=== PATIENT | female | born 2000 | race American Indian/Alaskan Native ===

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

== ENCOUNTER 2021-07-03 18:26 | Emergency (ER) | payer MEDICAID ==
[~2021-07-03] VITALS: Ht 157.5 cm; Wt 81.8 kg
[2021-07-03 19:26] VITALS: BP 123/100
== END 2021-07-04 02:50 | disposition left against medical advice (07) ==
LOC: ER 18:27
DX: T78.40XA Allergy, unspecified, initial encounter (principal); Z53.21 Procedure and treatment not carried out due to patient leaving prior to being seen by health care provider; Y92.89 Other specified places as the place of occurrence of the external cause

== ENCOUNTER 2024-05-03 13:20 | Emergency (ER) | payer MEDICAID ==
[~2024-05-03] VITALS: Ht 160 cm; Wt 106.7 kg
[~2024-05-03 13:20] MED LIST changes: +CHLO473M13 PO; -CHLO473M3 PO
[2024-05-03 13:21] VITALS: BP 170/92; PULSE 71; RESP 16; TEMP 98.5; O2SAT 97
[2024-05-03] MEDS ORDERED: PRED50TA PO (14:13)
[2024-05-03] MEDS ORDERED: LORA10TA7 PO (14:14)
== END 2024-05-03 14:29 | disposition home or self-care (01) ==
LOC: ER 13:20
DX: T78.49XA Other allergy, initial encounter (principal); F12.90 Cannabis use, unspecified, uncomplicated; Z79.899 Other long term (current) drug therapy; X58.XXXA Exposure to other specified factors, initial encounter
CPT/HCPCS: 99283

== ENCOUNTER 2025-07-04 08:09 | Emergency (ER) | payer BC, MEDICAID ==
[~2025-07-04] VITALS: Ht 160 cm; Wt 86.4 kg
[~2025-07-04 08:09] MED LIST changes: +LORA10TA7 PO; +PRED50TA PO
[2025-07-04 08:12] VITALS: BP 128/65; PULSE 64; RESP 18; O2SAT 99
--- NOTE | 2025-07-04 09:02 | Physician Documentation ---
History of Present Illness ~ Chief Complaint: Medical Clearance Stated Complaint: DOCTORS NOTE Time Seen by MD: 08:51 Primary Medical Doctor: sami QUINTERO Twenty 24-year-old female presents to the ED after having a GI illness over the last three days. She states that most of her symptoms have subsided however she continues to have diarrhea. She uses wanting to be cleared for work. She states she is still having multiple diarrhea bouts throughout the day. She is able to hold water down now. Day of Onset: Jul 04, 2025 Tetanus within 5 years?: Yes Medication Reconciliation Allergies: Coded Allergies: No Known Allergies (Unverified , 07/04/25) Scheduled Chlorhexidine Gluconate (Periogard), 15 ML PO Q12H Loratadine (Loratadine), 10 MG PO DAILY Ondansetron Hcl (Zofran), 1 TAB PO Q6H Prednisone (Prednisone), 1 TAB PO DAILY Past Medical History Past Medical History: No Pertinent History Past Surgical History: no surgical history Alcohol Use: Occasionally Drug Use: marijuana Lives In: Home Occupation: student Review of Systems All Other Systems at this time: Reviewed and Negative ROS As stated above in the HPI, otherwise all systems are reviewed and negative. Physical Exam Vital Signs: Temperature: 97.8, Source: Temporal, Heart Rate: 64, Respiratory Rate: 18, BP: 128/65, Pulse Oximetry: 99, Weight: 86.360 Physical Exam General: Alert, no apparent distress. Cardiovascular: Regular rate and rhythm, no murmurs. Gastrointestinal: Soft, nontender, nondistended. Bowels sounds present. Extremities: Normal range of motion, no deformity. Neurologic: Oriented x4. Psychiatric: Normal mood and affect. Skin: Normal color, warm and dry. No edema, no ecchymosis. Progress Results/Orders Results/Orders Vital Signs 07/04/25 07/04/25 08:12 09:16 Temp 97.8 97.8 Pulse 64 Resp 18 B/P (MAP) 128/65 Pulse Ox 99 Medical Decision Making Findings Presents with a clinical indications for gastro enteritis. She appears to be on the downward trend of symptoms. I am concerned with her ongoing diarrhea that she may still be suffering from dehydration. However she is able to hold water down I am going to keep her off work for the next day as her symptoms subside. Differential Dx:Considerations: Include: Intoxication-Alcohol, Intoxication- Other drug, Personality disorder, Substance abuse disorder, Acute delirium, Closed head injury, Cervical spine injury, Skull fracture, Fracture(s), Abrasion, Contusion, Foreign body, Hematoma, Laceration, Alcohol withdrawl syndrom, Encephalopathy, Hepatitis, Medically stable, Other Departure Disposition: 01 HOME / SELF CARE / HOMELESS Impression: Primary Impression: Viral gastroenteritis Condition: Stable Discharge Instructions: Dehydration, Adult, [id number], Diarrhea, Adult, [id number] Departure Forms: Excuse form Work or School Excused From: Work Excuse beginning now through the following date: Jul 06, 2025 May Return but still avoid physical Activity from now until: Jul 05, 2025 May Return to full physical activity as of: Jul 05, 2025 Referrals: NO PRIMARY CARE PROVIDER (PCP) Signature Scribe Signature: f Attestation: Scribed for Serina Deras Tipple Tender by Serina Barnett NP . 07/04/25 13:31 SERINA DERAS NP Jul 04, 2025 09:02
[2025-07-04 09:16] VITALS: TEMP 97.8
== END 2025-07-04 09:17 | disposition home or self-care (01) ==
LOC: ER 08:10
DX: A08.4 Viral intestinal infection, unspecified (principal); F12.90 Cannabis use, unspecified, uncomplicated; Z79.899 Other long term (current) drug therapy; Z72.89 Other problems related to lifestyle
CPT/HCPCS: 99281